=== PATIENT | female | born 1960 | race Caucasian/White ===

== ENCOUNTER 2019-04-12 08:37 | Outpatient (CLI) | payer OTHER, SELFPAY ==
--- NOTE | 2019-04-12 08:40 | ECG_ITS ---
Measurements Intervals [place] Rate: 73 P: 67 HI: 159 QRS: 61 QRSD: 90 T: 56 QT: 355 QTc: 391 Interpretive Statements SINUS RHYTHM NORMAL ECG Electronically Signed On 04-12-2019 9:03:45 [employer]PERVISOR [employer] ROOM by Hussein Jacobs D.O.
== END 2019-04-12 08:38 | disposition home or self-care (01) ==
PROVIDERS: PCP Family Medicine; Visit Provider Family Medicine
DX: Z01.818 Encounter for other preprocedural examination (principal)
CPT/HCPCS: 93005

== ENCOUNTER 2019-12-02 09:49 | Outpatient (CLI) | payer OTHER, SELFPAY ==
--- NOTE | ~2019-12-02 | MM_ITS ---
EXAMINATION: MM screening [facility]ala BI w jojo HISTORY: Screening mammogram TECHNIQUE: Craniocaudal and mediolateral oblique 3-D tomosynthesis images were obtained and synthetic 2-D images were generated. CAD analysis was submitted and interpreted. COMPARISON: 08/24/2018, 07/09/2017, 04/29/2016 bilateral digital screening mammogram examinations BREAST PARENCHYMAL COMPOSITION: There are scattered areas of fibroglandular density. FINDINGS: There is no evidence of suspicious mass, calcification, or architectural distortion to sugg est malignancy in either breast. There has been no suspicious interval change. IMPRESSION: 1. No mammographic evidence of malignancy. 2. Recommend routine screening mammography in one year. BI-RADS Category 1: Negative Reviewed, dictated and finalized at location A.
== END 2019-12-02 09:50 | disposition home or self-care (01) ==
PROVIDERS: PCP Family Medicine; Visit Provider Physician Assistant
DX: Z12.31 Encounter for screening mammogram for malignant neoplasm of breast (principal)
CPT/HCPCS: 77063; 77067

== ENCOUNTER → 2020-04-07 09:06 | Outpatient (CLI) | payer OTHER, SELFPAY ==
--- NOTE | ~2020-04-07 | XR_ITS ---
EXAMINATION: XR hand RT 2V DATE: 04/07/2020 09:22 INDICATION: Right thumb pain and clicking TECHNIQUE: Posteroanterior and lateral views of the right hand were obtained. COMPARISON: None. FINDINGS: Bone alignment is normal. No fracture. Mild polyarticular osteoarthritis characterized by mild nonuni form joint space narrowing and/or tiny marginal osteophytes at the first carpometacarpal, first metac arpophalangeal and interphalangeal and at the third distal interphalangeal joint. Minimal osteoarthri tis at a few additional interphalangeal joints. Mild periarticular soft tissue swelling at a few of t he interphalangeal joints most prominent in the second and third digits. IMPRESSION: 1. Mild polyarticular osteoarthritis with typical distribution in the right hand. Reviewed, dictated and finalized at location B. 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 Mild polyarticular osteoarthritis with typical distribution in the right morillo dKimberlyn
== END ==
PROVIDERS: PCP Family Medicine; Visit Provider Family Medicine
DX: M79.644 Pain in right finger(s) (principal); M19.041 Primary osteoarthritis, right hand
CPT/HCPCS: 73120

== ENCOUNTER → 2020-05-08 08:48 | Outpatient (CLI) | payer OTHER, SELFPAY ==
--- NOTE | ~2020-05-08 | XR_ITS ---
EXAMINATION: XR wrist LT min 3V DATE: 05/08/2020 09:10 INDICATION: Left wrist pain and swelling. Primary osteoarthritis. TECHNIQUE: Posteroanterior, ulnar deviation, oblique, and lateral views of the left wrist were obtain ed. COMPARISON: none FINDINGS: Alignment is normal. No fracture or suspected avascular necrosis. Mild osteoarthritis at the triscaph e and first carpal metacarpal joints. There is mild soft tissue swelling dorsal to the first carpomet acarpal joint. IMPRESSION: 1. Mild osteoarthritis at the triscaphe and first carpal metacarpal joints. Reviewed, dictated and finalized at location B. PROFESSIONAL
== END ==
PROVIDERS: PCP Family Medicine; Visit Provider Plastic Surgery
DX: M19.032 Primary osteoarthritis, left wrist (principal)
CPT/HCPCS: 73110

== ENCOUNTER 2020-12-04 10:30 | Outpatient (CLI) | payer OTHER, SELFPAY ==
--- NOTE | ~2020-12-04 | MM_ITS ---
EXAMINATION: MM screening lala BI w jojo HISTORY: Screening TECHNIQUE: Craniocaudal and mediolateral oblique 3-D tomosynthesis images were obtained and synthetic 2-D images were generated. CAD analysis was submitted and interpreted. COMPARISON: Comparison to multiple prior studies sequentially, with oldest reviewed study dated 04/26. BREAST PARENCHYMAL COMPOSITION: There are scattered areas of fibroglandular density. FINDINGS: There is no evidence of suspicious mass, calcification, or architectural distortion to sugg est malignancy in either breast. There has been no suspicious interval change. IMPRESSION: 1. No mammographic evidence of malignancy. 2. Recommend routine screening mammography in one year. BI-RADS Category 1: Negative Reviewed, dictated and finalized at location A.
== END 2020-12-04 10:31 | disposition home or self-care (01) ==
LOC: ANHIMG 10:31
PROVIDERS: PCP Family Medicine; Visit Provider Family Medicine
DX: Z12.31 Encounter for screening mammogram for malignant neoplasm of breast (principal)
CPT/HCPCS: 77063; 77067

== ENCOUNTER → 2020-12-13 08:03 | Outpatient (CLI) | payer OTHER, SELFPAY ==
--- NOTE | ~2020-12-13 | US_ITS ---
EXAMINATION: US abdomen limited EXAM DATE: 12/13/2020 08:21 INDICATION: R10.11 - Right upper quadrant pain. TECHNIQUE: Multiple grayscale and Doppler images of the abdomen right upper quadrant were obtained (b y a technologist who performed the scan) and subsequently reviewed. There is no prior study for jani ashby. FINDINGS: The pancreatic head and body are normal in appearance. The pancreatic tail is not visualized. The l iver has normal echogenicity and contour. There are no focal liver lesions identified. There is no evidence of intrahepatic biliary duct dilation. Portal venous flow was seen in the hepatopedal, nor mal direction and has normal Doppler waveform. No right-sided hydronephrosis. Common bile duct measures 3 mm, which is normal. The gallbladder wall is normal in thickness, with ex pected amount of distention. No sonographic evidence of pericholecystic fluid. There is no cholelit hiases. Technologist performing exam reports patient did not demonstrate sonographic Orourke's sign. Please note that this sign is less reliable in patients who have received pain medication. IMPRESSION: Unremarkable abdominal ultrasound exam. Reviewed, dictated and finalized at location A.
== END ==
PROVIDERS: PCP Family Medicine; Visit Provider Physician Assistant
DX: R10.11 Right upper quadrant pain (principal)
CPT/HCPCS: 76705

== ENCOUNTER → 2021-06-12 14:57 | Outpatient (CLI) | payer OTHER, SELFPAY ==
--- NOTE | ~2021-06-12 | XR_ITS ---
EXAMINATION: XR hip RT 2V w AP pelvis EXAM DATE: 06/12/2021 15:34 INDICATION: Myalgia TECHNIQUE: Right hip frontal, crosstable lateral projections for interpretation. Frontal projection p dhara. There is no prior study for comparison. FINDINGS: Smooth right hip femoral head contour, no radiographic evidence of avascular necrosis. The re is mild symmetric bilateral hip primary osteoarthritis. There are no acute fractures or dislocatio ns identified. There is no subcutaneous gas. The soft tissue is unremarkable. There are no radiop aque foreign bodies. IMPRESSION: Mild symmetric bilateral hip osteoarthritis. Reviewed, dictated and finalized at location A.
--- NOTE | ~2021-06-12 | XR_ITS ---
EXAMINATION: XR shoulder RT min 2V DATE: 06/12/2021 15:34 INDICATION: Right shoulder pain TECHNIQUE: AP internally and externally rotated, AP oblique externally rotated and axillary views of the right shoulder were obtained. COMPARISON: None FINDINGS: Normal alignment. Unfused meso acromial os acromiale. No fracture. Glenohumeral and acromioclavicular joints are normal. Small sclerotic bone island at the right humeral head. Soft tissues are unremarka ble. The visualized portions of the right lung are clear. IMPRESSION: Meso acromial os acromiale. No acute osseous abnormality. Reviewed, dictated and finalized at location B.
== END ==
PROVIDERS: PCP Family Medicine; Visit Provider Family Medicine
DX: M25.511 Pain in right shoulder (principal); M79.18 Myalgia, other site; M16.0 Bilateral primary osteoarthritis of hip; Q79.8 Other congenital malformations of musculoskeletal system
CPT/HCPCS: 73030; 73502

== ENCOUNTER 2022-01-24 14:48 | Outpatient (CLI) | payer OTHER, SELFPAY ==
--- NOTE | ~2022-01-24 | MM_ITS ---
EXAMINATION: MM screening lala BI w jojo HISTORY: Screening TECHNIQUE: Craniocaudal and mediolateral oblique 3-D tomosynthesis images were obtained and synthetic 2-D images were generated. CAD analysis was submitted and interpreted. COMPARISON: Comparison to multiple prior studies sequentially, with oldest reviewed study dated 04/27. BREAST PARENCHYMAL COMPOSITION: There are scattered areas of fibroglandular density. FINDINGS: There is no evidence of suspicious mass, calcification, or architectural distortion to sugg est malignancy in either breast. There has been no suspicious interval change. IMPRESSION: 1. No mammographic evidence of malignancy. 2. Recommend routine screening mammography in one year. 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
== END 2022-01-24 14:49 | disposition home or self-care (01) ==
PROVIDERS: PCP Family Medicine; Visit Provider Family Medicine
DX: Z12.31 Encounter for screening mammogram for malignant neoplasm of breast (principal)
CPT/HCPCS: 77063; 77067

== ENCOUNTER → 2022-10-24 13:59 | Outpatient (CLI) | payer OTHER, SELFPAY ==
--- NOTE | ~2022-10-24 | XR_ITS ---
EXAMINATION: XR chest 2V Exam Date/Time: 10/24/2022 14:01 CDT HISTORY: lump on right upper anterior rib for 6 months no injury Comparison: None. RESULT: Lines, tubes, and devices: None. Lungs and pleura: Clear. Cardiomediastinal silhouette: Normal. Other: No acute osseous or upper abdominal finding. IMPRESSION: No acute cardiopulmonary process. Reviewed, dictated and finalized at location K.
== END ==
PROVIDERS: PCP Family Medicine; Visit Provider Family Medicine
DX: R22.2 Localized swelling, mass and lump, trunk (principal)
CPT/HCPCS: 71046

== ENCOUNTER 2023-02-13 08:22 | Outpatient (CLI) | payer OTHER, SELFPAY ==
--- NOTE | ~2023-02-13 | MM_ITS ---
EXAMINATION: MM screening [facility] BI w jojo HISTORY: Screening mammogram TECHNIQUE: Craniocaudal and mediolateral oblique 3-D tomosynthesis images were obtained and synthetic 2-D images were generated. CAD analysis was submitted and interpreted. COMPARISON: 01/24/2022, 12/04/2020, 12/02/2019 BREAST PARENCHYMAL COMPOSITION: There are scattered areas of fibroglandular density. FINDINGS: No suspicious mass, calcification, or architectural distortion are identified in either puja ast to suggest malignancy. There has been no suspicious interval change. IMPRESSION: 1. No mammographic evidence of malignancy. 2. Recommend routine screening mammography in one year. BI-RADS Category 1: Negative Reviewed, dictated and finalized at location A. 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
== END 2023-02-13 08:23 | disposition home or self-care (01) ==
PROVIDERS: PCP Family Medicine; Visit Provider Family Medicine
DX: Z12.31 Encounter for screening mammogram for malignant neoplasm of breast (principal)
CPT/HCPCS: 77063; 77067

== ENCOUNTER 2023-11-03 10:09 | Outpatient (CLI) | payer OTHER, SELFPAY ==
--- NOTE | ~2023-11-03 | XR_ITS ---
Right Shoulder Technique: AP and scapular Y views were obtained. Clinical History: Pain Findings: No fracture or dislocation is seen. Osseous alignment is anatomic. The glenohumeral joint i s intact. There is mild AC joint degenerative change. Soft tissues are unremarkable. Impression: Mild AC joint degenerative change. Reviewed, dictated and finalized at [facility]. Impression: Mild AC joint degenerative change.
== END 2023-11-03 10:10 ==
PROVIDERS: PCP Family Medicine; Visit Provider Family Medicine
DX: M19.011 Primary osteoarthritis, right shoulder (principal)
CPT/HCPCS: 73030

== ENCOUNTER 2024-02-03 15:16 | Outpatient (CLI) | payer OTHER, SELFPAY ==
--- NOTE | ~2024-02-03 | MR_ITS ---
EXAMINATION: MR shoulder RT wo con DATE: 02/03/2024 16:24 INDICATION: Right shoulder pain. TECHNIQUE: Magnetic resonance imaging (MRI) of the right shoulder was performed without intravenous c ontrast. Sequences included axial PD-weighted FS FSE, coronal oblique PD-weighted FS FSE and T2-weigh dannielle FS FSE, and sagittal oblique T2-weighted FS FSE and T1-weighted FSE. COMPARISON: Right shoulder radiographs 11/03/2023 FINDINGS: Coracoacromial arch: There is a meso-acromial os acromiale with degenerative changes at the synchondrosis. The acromion un dersurface is curved in morphology (type II). There is mild osteoarthritis of the acromioclavicular j oint. There is moderate subacromial/subdeltoid bursitis. Rotator cuff: There is a near full-thickness tear of supraspinatus and anterior infraspinatus tendons measuring 12 mm anterior to posterior by 24 mm proximal to distal. Teres minor tendon is normal. There is mild sub scapularis tendinopathy. There is no asymmetric fatty atrophy of the rotator cuff muscle bellies. The re is edema-like marrow signal intensity in the greater tuberosity. Biceps tendon and glenoid labrum: Biceps tendon is in bicipital groove. There is mild intra-articular biceps tendinopathy. The glenoid labrum is intact. Fluid: There is a small glenohumeral joint effusion. Bones/cartilage: There is cartilage surface irregularity of glenoid and humeral head. IMPRESSION: 1. Krbs-naqd-xuousizey rotator cuff tear. 2. Mild glenohumeral joint chondrosis. 3. Mild intra-articular biceps tendinopathy. 4. Mild acromioclavicular joint osteoarthritis. Os acromiale with degenerative change at the synchond rosis. 5. Small glenohumeral joint effusion. 6. Moderate subacromial/subdeltoid bursitis. Reviewed, dictated and finalized at location A. GER GAS IMPRESSION: 1. Jqqa-rvnd-poqbygkiv rotator cuff tear. 2. Mild glenohumeral joint chondrosis. 3. Mild intra-articular biceps tendinopathy. 4. Mild acromioclavicular joint osteoarthritis. Os acromiale with degenerative change at the synchondrosis. 5. Small glenohumeral joint effusion. 6. Moderate subacromial/subdeltoid bursitis.
== END 2024-02-03 15:17 | disposition home or self-care (01) ==
PROVIDERS: PCP Family Medicine; Visit Provider Family Medicine
DX: M75.121 Complete rotator cuff tear or rupture of right shoulder, not specified as traumatic (principal); M94.211 Chondromalacia, right shoulder; M75.21 Bicipital tendinitis, right shoulder; M19.011 Primary osteoarthritis, right shoulder; M25.411 Effusion, right shoulder; M75.51 Bursitis of right shoulder
CPT/HCPCS: 73221

== ENCOUNTER 2024-03-23 10:18 | Outpatient (CLI) | payer OTHER, SELFPAY ==
--- NOTE | ~2024-03-23 | MM_ITS ---
EXAMINATION: MM screening [facility] BI w jojo HISTORY: Screening mammogram TECHNIQUE: Craniocaudal and mediolateral oblique 3-D tomosynthesis images were obtained and synthetic 2-D images were generated. CAD analysis was submitted and interpreted. COMPARISON: 02/13/2023, 01/24/2022, 12/04/2020 BREAST PARENCHYMAL COMPOSITION:Not Dense. There are scattered areas of fibroglandular density. FINDINGS: No suspicious mass, calcification, or architectural distortion are identified in either puja ast to suggest malignancy. There has been no suspicious interval change. IMPRESSION: No mammographic evidence of malignancy. Recommend routine screening mammography in one year. BI-RADS Category 1: Negative Reviewed, dictated and finalized at location . GER OF PLANNING
== END 2024-03-23 10:19 | disposition home or self-care (01) ==
LOC: ANHIMG 10:19
PROVIDERS: PCP Family Medicine; Visit Provider Family Medicine
DX: Z12.31 Encounter for screening mammogram for malignant neoplasm of breast (principal)
CPT/HCPCS: 77063; 77067

== ENCOUNTER 2024-03-25 00:13 | Day surgery (SDC) | payer OTHER, SELFPAY ==
[2024-03-09 13:09] VITALS: BMI 21.0
[2024-03-25] MEDS: LACTATED RINGERS 1,000 ML 150 ML IV CONT (06:42)
[2024-03-25 06:45] VITALS: BP 116/83; PULSE 110; RESP 14; TEMP 36.6; O2SAT 97
--- NOTE | 2024-03-25 07:02 | WPDANESEPPF ---
Anes - Initial Pre Proc Eval Procedure: Operation Date: 03/25/24 08:00 Proposed Procedures p Colonoscopy - Sami Pedroza MD Date/Time: 03/25/24 07:02 Surgeon: Sami Pedroza MD Pre Op Diagnosis: hx colon polyps Patient Data Age: 64 Gender: F Height: 1.7 m Weight: 60.7 kg Last Vital Signs Temp 36.6 C 03/25/24 06:45 Pulse 110 H 03/25/24 06:45 Resp 14 03/25/24 06:45 BP 116/83 03/25/24 06:45 Pulse Ox 97 03/25/24 06:45 O2 Del Method Room Air 03/25/24 06:45 Allergies Allergy/AdvReac Type Severity Reaction Status Date / Time No Known Allergies Allergy Verified 03/25/24 06:43 Home Medications ?Medication ?Instructions ?Recorded ?Confirmed ?Type lysine 500 mg tablet 500 mg PO DAILY 02/11/19 03/25/24 History npyrrvcg-xem-beii-FA-Ca carb-vit K 1 tablet PO DAILY 02/11/19 03/25/24 History 18 mg iron-400 mcg-500 mg tablet (Women's Multivitamin) calcium 500 mg (as 1 tablet PO DAILY 02/17/19 03/25/24 History carbonate)-vitamin D3 3.125 mcg (125 unit) tablet (Calcium) glucosamine YKs-O6-Euaxjfrih 1 tablet PO DAILY 02/17/19 03/25/24 History josie 1,500 mg-400 unit-100 mg tablet (Glucosamine Daily Complex) ascorbic acid 125 mg-collagen, See Rx Instructions .Route .COMPLEX 03/11/19 03/25/24 History hydrolyzed 740 mg capsule (Collagen Plus Vitamin C) biotin 10,000 mcg-keratin 100 mg See Rx Instructions PO .COMPLEX 03/11/19 03/25/24 History tablet (Biotin Plus Keratin) bupropion HCl 150 mg 24 hr tablet, 150 mg PO QAM #90 tabs 09/22/23 03/25/24 Rx extended release estradiol 0.01% (0.1 mg/gram) 1 g vaginal WEEKLY #42.5 grams 10/13/23 03/09/24 Rx vaginal cream meloxicam 15 mg tablet See Rx Instructions .Route 11/04/23 03/25/24 Rx .COMPLEX #90 tabs alprazolam 0.25 mg tablet 0.25 mg PO TID PRN anxiety #30 tabs 03/12/24 03/25/24 Rx simvastatin 5 mg tablet See Rx Instructions .Route 03/22/24 03/25/24 Rx .COMPLEX #90 tabs Patient hx anesthesia problems: none Family hx anesthesia problems: none Results Review: All pre-operative results and documents have been reviewed as part of the pre-operative evaluation. [facility] Past Medical History Medical History History of colon polyps Cataract, left eye (~2019) Normal colonoscopy (~02/07/19) Mammogram normal (~08/08/18) Anxiety Surgical History Surgical History H/O cataract removal with insertion of prosthetic lens Hx of LASIK (~1999) History of carpal tunnel release (~1989) Hx of tonsillectomy (~1971) Family History Family History Mother Family history of hypercholesterolemia, Onset Age: 87 Hypertension, Onset Age: 87 Cerebrovascular accident, Onset Age: 87 Father Hypertension Heart disease Grandparent Colon cancer Grandparent Leukemia Social History Social History Smoking status: Never smoker Second hand tobacco smoke exposure: No Alcohol intake: current Drinks per week: 3 Alcohol use details: occasionally Substance use: current Substance use type: marijuana Other substance usage details: GUMMIES DAILY, OCC SMOKES MARIJUANA Lack of Transportation: No Lack of Food: Never True Current Housing: I Have Housing Concerned About Future Housing: No Difficulty Paying Gas/Electric Bills: No Difficulty Paying for Meds: No Currently Unemployed: No Education: Master's Degree or Higher Difficulty w/ Childcare or Family Care: No Living arrangements: with family Spiritual care concerns: No Anes - Eval Final PreProcedure Day of Procedure 03/25/24 07:02 Patient weight: normal Heart: regular rate and rhythm Lungs: clear to auscultation Airway: Mallampati scale class II Neurological: alert and oriented Last oral intake: >/= 8 hours ASA classification: II Emergent: no Anesthetic plan: proceed Anesthesia type and monitoring: general GIVS and standard monitoring Results Review: All pre-operative results and documents have been reviewed as part of the pre-operative evaluation. Informed Consent: The patient's anesthetic plan and its attendant risks and benefits were discussed with the patient/family/POA. Questions were solicited and answers provided to the satisfaction of the patient/family/POA.
--- NOTE | 2024-03-25 07:53 | PM.HPGS ---
History of Present Illness History of Present Illness Consent: Risks, benefits, and alternatives have been discussed and questions answered. Patient agrees to proceed with procedure. Chief complaint: hx colon polyps Narrative: Jaqueline Zeng is a 64 year old female with last colonoscopy 2019, previously had polyp Review of Systems Review of Systems: All systems reviewed & are unremarkable except as noted in HPI and below PMFSH Past Medical History Medical History History of colon polyps Cataract, left eye (~2019) Normal colonoscopy (~02/07/19) Mammogram normal (~08/08/18) Anxiety Surgical History Surgical History H/O cataract removal with insertion of prosthetic lens Hx of LASIK (~1999) History of carpal tunnel release (~1989) Hx of tonsillectomy (~1971) Family History Family History Mother Family history of hypercholesterolemia, Onset Age: 87 Hypertension, Onset Age: 87 Cerebrovascular accident, Onset Age: 87 Father Hypertension Heart disease Grandparent Colon cancer Grandparent Leukemia Social History Social History Smoking status: Never smoker Second hand tobacco smoke exposure: No Alcohol intake: current Drinks per week: 3 Alcohol use details: occasionally Substance use: current Substance use type: marijuana Other substance usage details: GUMMIES DAILY, OCC SMOKES MARIJUANA Lack of Transportation: No Lack of Food: Never True Current Housing: I Have Housing Concerned About Future Housing: No Difficulty Paying Gas/Electric Bills: No Difficulty Paying for Meds: No Currently Unemployed: No Education: Master's Degree or Higher Difficulty w/ Childcare or Family Care: No Living arrangements: with family Spiritual care concerns: No Meds Home Medications and Allergies Home Medications ?Medication ?Instructions ?Recorded ?Confirmed ?Type lysine 500 mg tablet 500 mg PO DAILY 02/11/19 03/25/24 History lkntxpho-gqf-xsri-FA-Ca carb-vit K 1 tablet PO DAILY 02/11/19 03/25/24 History 18 mg iron-400 mcg-500 mg tablet (Women's Multivitamin) calcium 500 mg (as 1 tablet PO DAILY 02/17/19 03/25/24 History carbonate)-vitamin D3 3.125 mcg (125 unit) tablet (Calcium) glucosamine LGq-F8-Nvtevokaa 1 tablet PO DAILY 02/17/19 03/25/24 History josie 1,500 mg-400 unit-100 mg tablet (Glucosamine Daily Complex) ascorbic acid 125 mg-collagen, See Rx Instructions .Route .COMPLEX 03/11/19 03/25/24 History hydrolyzed 740 mg capsule (Collagen Plus Vitamin C) biotin 10,000 mcg-keratin 100 mg See Rx Instructions PO .COMPLEX 03/11/19 03/25/24 History tablet (Biotin Plus Keratin) bupropion HCl 150 mg 24 hr tablet, 150 mg PO QAM #90 tabs 09/22/23 03/25/24 Rx extended release estradiol 0.01% (0.1 mg/gram) 1 g vaginal WEEKLY #42.5 grams 10/13/23 03/09/24 Rx vaginal cream meloxicam 15 mg tablet See Rx Instructions .Route 11/04/23 03/25/24 Rx .COMPLEX #90 tabs alprazolam 0.25 mg tablet 0.25 mg PO TID PRN anxiety #30 tabs 03/12/24 03/25/24 Rx simvastatin 5 mg tablet See Rx Instructions .Route 03/22/24 03/25/24 Rx .COMPLEX #90 tabs Allergies Allergy/AdvReac Type Severity Reaction Status Date / Time No Known Allergies Allergy Verified 03/25/24 06:43 Vital Signs Vital Signs - 24 hr 03/25/24 06:45 Temperature 98 F Pulse Rate 110 H Respiratory Rate 14 Blood Pressure 116/83 Pulse Oximetry 97 Oxygen Delivery Room Air Exam Const: General: comfortable and no acute distress HENMT: Face/Nose/Sinus: Normal nares present Eyes: General: appearance normal, both eyes and all related structures Neck: Neck: no JVD Resp: Auscultation: clear to auscultation bilaterally Cardio: Rate: regular rate Rhythm: regular rhythm GI: Inspection: non-distended GI Palp: Yes Soft to palpation Skin: General skin exam: normal color Neuro: General: gait normal Speech: normal speech Extrem: General: normal to inspection Psych: Mental Status: mental status grossly normal Assessment and Plan Assessment and plan (1) History of colon polyps: Code(s): Z86.010 - Personal history of colon polyps Status: Acute Assessment and Plan: colonoscopy
[2024-03-25 08:11] VITALS: BP 107/75; PULSE 96; RESP 23; O2SAT 98
[2024-03-25 08:21] VITALS: BP 131/92; PULSE 91; RESP 24; O2SAT 100
[2024-03-25 08:31] VITALS: BP 149/100; PULSE 78; RESP 16; O2SAT 100
== END 2024-03-25 08:42 | disposition home or self-care (01) ==
PROVIDERS: PCP Family Medicine; Visit Provider Internal Medicine Gastroenterology
PROC: 0DJD8ZZ Inspection of Lower Intestinal Tract, Via Natural or Artificial Opening Endoscopic (ICD-10-PCS; CPT 45378; principal; 2024-03-25 08:00)
DX: Z12.11 Encounter for screening for malignant neoplasm of colon (principal); K57.30 Diverticulosis of large intestine without perforation or abscess without bleeding; K64.8 Other hemorrhoids; F12.90 Cannabis use, unspecified, uncomplicated; Z86.0100 Personal history of colon polyps, unspecified
CPT/HCPCS: 45378; J2003; J2704; J7120

== ENCOUNTER 2024-11-01 10:18 | Outpatient (CLI) | payer OTHER, SELFPAY ==
--- NOTE | 2024-11-01 10:45 | ECG_ITS ---
Test Date: 2024-11-01 10:48:45 Measurements Intervals [place] Rate: 71 P: 75 OK: 146 QRS: 57 QRSD: 85 T: 54 QT: 350 QTc: 382 Interpretive Statements SINUS RHYTHM LEFT ATRIAL ENLARGEMENT BASELINE ARTIFACT- I, II, III, AVR, AVL, AVF, V1-V3 BORDERLINE ECG No previous ECG available for comparison Electronically Signed On 11-01-2024 11:55:50 CDT by Hussein Jacosb D.O.
== END 2024-11-01 10:19 | disposition home or self-care (01) ==
PROVIDERS: PCP Family Medicine; Visit Provider Orthopaedic Surgery
DX: Z01.810 Encounter for preprocedural cardiovascular examination (principal); E78.5 Hyperlipidemia, unspecified; R94.31 Abnormal electrocardiogram [ECG] [EKG]
CPT/HCPCS: 93005

== ENCOUNTER 2024-11-11 00:34 | Day surgery (SDC) | payer OTHER, SELFPAY ==
--- NOTE | 2024-10-28 14:37 | PC.NURSE ---
Addendum entered by Kevin Rosales RN 11/02/24 12:31: Patient says no changes since preop interview. Informed patient she is to be here at 1130 on 11-11-2024 for surgery at 130pm. Told to follow all other instructions given before. Original Note: Report to the Outpatient Waiting Room, entrance under the green pavilion located off [facility], at time ___10:00AM____ on date _11/05/24 . Planned Procedure Time: _12:00AM .? Time changes happen often and if your time is changed the preop area will call you the afternoon before. - You and your visitor will be asked to self-screen and do not enter if you have any COVID symptoms. Please call surgeon if you need to reschedule. - A mask is optional within the hospital at this time. Patients may have clear liquids (water, carbonated beverages, clear teas, apple juice) until 3 hours prior to surgery with a maximum of 20 ounces. - No food from midnight until time of surgery and no smoking, or chewing tobacco (or any form of nicotine). No chewing gum, candy or mints. Take only the following medications with a SIP of water on the morning of surgery: __BUPROPRION, ALPRAZOLAM DO NOT STOP ANY OF YOUR OTHER PRESCRIPTION MEDICATIONS PRIOR TO SURGERY EXCEPT THE FOLLOWING Hold all vitamins and supplements for 3 days per anesthesiologist. Medications to discontinue per physician MOBIC Date to take last dose__10/29/24 Please no make-up, nail romansh, hairspray, perfume, deodorant, or body powder the day of surgery.? No jewelry (including any body piercings) or valuables the day of surgery, leave them at home.? Please take a shower or bath the night before, or the morning of, surgery with an antibacterial soap.? Wear comfortable, loose fitting clothing.? - Jewelry must be removed prior to entering the operating room.? Rings and piercings that are not removed may be cut off. - The hospital will not accept responsibility for valuables.? - Please leave all valuables, including medications, at home the day of surgery. If you are going home after surgery, a licensed wagon driver must drive you home.? - NO public transportation without another adult if you receive anesthesia. - We recommend that an adult stay with you for 24 hours following discharge. - We also recommend that you do not drive, make important decision, drink alcoholic beverages, or take any drugs that were not prescribed by your health care provider for at least 24 hours after your discharge time. Follow any additional instructions given to you from your surgeon. Telephone instructions given to ___JOSE and asked if any additional questions and then verbalized understanding. Patient advised to call surgeon office or pre surgery nurse liaison [phone] if any additional questions.
[2024-11-11] VITALS (7 sets, daily range): BP systolic 107–119; BP diastolic 44–73; PULSE 77–88; RESP 16–18; TEMP 36.4–36.7; O2SAT 94–100
--- NOTE | 2024-11-11 07:13 | WPDHPUPDATE1 ---
History and Physical Update Update Date/Time: 11/11/24 07:13 History and Physical has been reviewed, including an updated exam of the patient. There are NO changes in the patient's condition. Risks, benefits, and alternatives have been discussed and questions answered. Patient agrees to proceed with procedure.
[2024-11-11] MEDS: LACTATED RINGERS 1,000 ML 30 ML IV CONT ×2 (12:00→15:35)
[2024-11-11] MEDS: ACETAMINOPHEN 500 MG TABLET 1000 MG PO (12:06)
[2024-11-11] MEDS: KETOROLAC 15 MG/ML VIAL (*BKC) IV PUSH (12:06)
--- NOTE | 2024-11-11 12:38 | P.PNAN_ITS ---
Anes - Initial Pre Proc Eval Procedure: Operation Date: 11/11/24 13:30 Proposed Procedures p Right Shoulder Arthroscopic Rotator Cuff Repair with Subacromial Decompression, Biceps Tenodesis - Renzo Matos MD Date/Time: 11/11/24 12:38 Surgeon: Renzo Matos MD Pre Op Diagnosis: Rt Partial Rot Cuff Tear Patient Data Age: 64 Gender: F Height: 1.7 m Weight: 61.2 kg Last Vital Signs Temp 98.1 F 11/11/24 12:07 Pulse 80 11/11/24 12:07 Resp 16 11/11/24 12:07 BP 119/73 11/11/24 12:07 Pulse Ox 100 11/11/24 12:07 O2 Del Method Room Air 11/11/24 12:07 Allergies Allergy/AdvReac Type Severity Reaction Status Date / Time No Known Allergies Allergy Verified 11/11/24 12:05 Home Medications ?Medication ?Instructions ?Recorded ?Confirmed ?Type lysine 500 mg tablet 500 mg PO DAILY 02/11/19 History dsytgdfb-ama-oftx-FA-Ca carb-vit K 1 tablet PO DAILY 1 04/14/18 10/28/24 History 18 mg iron-400 mcg-500 mg tablet (Women's Multivitamin) calcium 500 mg (as 1 tablet PO DAILY 02/17/19 0 10/28/24 History carbonate)-vitamin D3 3.125 mcg (125 unit) tablet (Calcium) glucosamine DBb-G3-Yfljclkil 1 tablet PO DAILY 9 10/28/24 History josie 1,500 mg-400 unit-100 mg tablet (Glucosamine Daily Complex) ascorbic acid 125 mg-collagen, See Rx Instructions .Ro [place] .COMPLEX 03/11/19 10/28/24 History hydrolyzed 740 mg capsule (Collagen Plus Vitamin C) biotin 10,000 mcg-keratin 100 mg See Rx Instructions P O .COMPLEX 03/11/19 10/28/24 History tablet (Biotin Plus Keratin) estradiol 0.01% (0.1 mg/gram) 1 g vaginal WEEKLY #42.5 grams 10/13/23 10/28/24 Rx vaginal cream bupropion HCl 150 mg 24 hr tablet, See Rx Instructions .Route 04/02/24 11/11/24 Rx extended release .COMPLEX #90 tabs meloxicam 15 mg tablet See Rx Instructions .Route 0 05/14/24 11/11/24 Rx .COMPLEX #90 tabs simvastatin 5 mg tablet See Rx Instructions .Route 0 09/30/24 10/28/24 Rx .COMPLEX #90 tabs alprazolam 0.25 mg tablet 0.25 mg PO TID PRN anxiety # 30 tabs 10/04/24 11/11/24 Rx oxycodone-acetaminophen 5 mg-325 1 - 2 tablet PO Q4-6H PRN pain #30 11/11/24 Rx mg tablet tabs Patient hx anesthesia problems: none Family hx anesthesia problems: none Results Review: All pre-operative results and documents have been reviewed as part of the pre- operative evaluation. [facility] Past Medical History Medical History H/O Mohs micrographic surgery for skin cancer History of colon polyps Cataract, left eye (~2019) Normal colonoscopy (~02/07/19) Mammogram normal (~08/08/18) Anxiety Surgical History Surgical History H/O cataract removal with insertion of prosthetic lens Hx of LASIK (~1999) History of carpal tunnel release (~1989) Hx of tonsillectomy (~1971) Family History Family History Mother Family history of hypercholesterolemia, Onset Age: 87 Hypertension, Onset Age: 87 Cerebrovascular accident, Onset Age: 87 Father Hypertension Heart disease Grandparent Colon cancer Grandparent Leukemia Social History Social History Smoking status: Never smoker Second hand tobacco smoke exposure: No Alcohol intake: current Drinks per week: 3 Alcohol use details: occasionally Substance use: current Substance use type: marijuana Other substance usage details: EDIBLE OCCAS. Last use: 09/07/24 Do You Feel Safe in your Home?: Yes Lack of Transportation: No Lack of Food: Never True Current Housing: I Have Housing Concerned About Future Housing: No Difficulty Paying Gas/Electric Bills: No Difficulty Paying for Meds: No Currently Unemployed: No Education: Master's Degree or Higher Difficulty w/ Childcare or Family Care: No Living arrangements: with family Spiritual care concerns: No Anes - Eval Final PreProcedure Day of Procedure 11/11/24 12:38 Patient weight: normal Lungs: normal air movement Airway: Mallampati scale class II and special considerations (Upper caps. ) Neurological: alert and oriented Last oral intake: >/= 8 hours ASA classification: II Emergent: no Anesthetic plan: proceed Anesthesia type and monitoring: general ETT and standard monitoring Results Review: All pre-operative results and documents have been reviewed as part of the pre- operative evaluation. Hyperlipidemia. Active w cardio/wts, no cp or sob. Informed Consent: The patient's anesthetic plan and its attendant risks and benefits were discussed with the patient/family/POA. Questions were solicited and answers provided to the satisfaction of the patient/family/POA.
--- NOTE | 2024-11-11 12:53 | WPDANESPNB ---
Anes - Peripheral Nerve Block Date/Time: 11/11/24 12:53 I have discussed with the patient/family/POA the placement of a peripheral nerve block for post-operative pain management, including associated risks, benefits, complications, and side effects. Alternative methods of post-operative analgesia were detailed. Questions were solicited and answers provided to the satisfaction of the patient/family/POA. Time-Out: A pre-procedural Time-Out was completed immediately before starting the procedure and confirmed: Patient Identification, Site, Procedure, Patient Position and the Availability of Requisite Equipment. Clinical Indications: Acute post-operative pain management requested by the operative surgeon. Nerve Block Insertion Note Anes-nerve block: interscalene right Patient position: supine Skin prep: chlorhexidine Needle: 22 gauge, stimulating, insulated echogenic needle. Needle length: 80 mm Technique: ultrasound Injectate: other (Bupiv 0.5% 15 mls. ) Observations: tolerated well Procedure start time:: 1240 Procedure end time:: 1250
[2024-11-11] MEDS: ceFAZolin 2 GM in SODIUM CHLORIDE 0.9% IV 50 ML 100 ML IVPB (13:15)
[2024-11-11] MEDS: TRANEXAMIC ACID 1,000 MG/10 ML AMPUL 1000 MG IV PUSH (13:52)
--- NOTE | 2024-11-11 19:58 | P.OP_ITS ---
Procedure Note - Detailed Date of Procedure 11/11/24 Pre-op Diagnosis Right shoulder complete rotator cuff tear. Post-op Diagnosis Other (1. Complete Rotator cuff tear 2. Subacromial impingement 3. Biceps tendinosis 4. Os Acroimiale) Procedure Performed Right shoulder 1. Arthroscopic rotator cuff repair 2. Arthroscopic subacromial decompression including debridement of Os Acromiale 3. 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 The anterior delamination was reducible without undue tension. A margin convergence suture decreased the tear size initially. Two bone tunnels with 3 sutures each were used for repair. Biceps tenodesed with an anchor. The os acromiale was debrided to achieve a subacromial decompression. Description of Procedure Preoperative antibiotics were given. An interscalene block was administered in the preoperative area. The patient was bought brought to the operating room. A general anesthetic was administered. The patient was carefully positioned in the beach chair position. The head and neck were carefully positioned. The non operative extremity was also carefully positioned. The shoulder was prepped and draped in the usual sterile fashion. Examination was performed. Standard posterior and anterior arthroscopic portals were established. Inflow achieved with the arthroscopic pump using saline and epinephrine. The glenohumeral joint was carefully inspected. []. Attention was turned to the subacromial space. A complete bursectomy was performed. The tear configuration was carefully assessed. [At this point, 2 tunnels were created at the rotator cuff. Three sutures were passed through each tunnel. All sutures were then passed through the cuff tissue. The sutures were tied arthroscopically.] The arthroscopic instruments were removed. The wounds were closed with 3-0 Monocryl subcuticular suture and steri strips. There were no complications. A sling was applied and the patient brought to the recovery room. Physician tax accounting assistant, Veronika Rutherford PA-C, required for surgery; including p atient positioning, draping, arthroscopic camera operation, maintaining instrument position,[ suture retrieval,] wound closure, and dressing and sling placement. Pathology None sent Complications No immediate complications Condition Stable Disposition PACU [facility] Billing Surgery - Charge Forward: Surgery Billing
== END 2024-11-11 17:07 | disposition home or self-care (01) ==
PROVIDERS: PCP Family Medicine; Visit Provider Orthopaedic Surgery
PROC: (CPT 29805; principal; 2024-11-11 13:30)
DX: M75.121 Complete rotator cuff tear or rupture of right shoulder, not specified as traumatic (principal); G89.18 Other acute postprocedural pain; M75.41 Impingement syndrome of right shoulder; M75.21 Bicipital tendinitis, right shoulder; M25.811 Other specified joint disorders, right shoulder; M19.011 Primary osteoarthritis, right shoulder; F12.90 Cannabis use, unspecified, uncomplicated
CPT/HCPCS: 29827; 29828; 29826; 64415; J0690; A9270; C1713; J0166; J1100; J1885; J2003; J2250; J2270; J2405; J2704; J3010; J7120